=== PATIENT | male | born 1970 | race Caucasian/White ===

== ENCOUNTER 2019-10-31 15:04 | Emergency (ER) | payer MEDICAID ==
[~2019-10-31] VITALS: Ht 170.2 cm; Wt 77.0 kg
[~2019-10-31 15:04] MED LIST: NO HOME MEDS
[2019-10-31 15:09] VITALS: BP 121/83
[2019-10-31] MEDS ORDERED: LIDOcaine 1% W/epiNEPHrine 1:200,000 10ml vial IJ ONE (16:00)
[2019-10-31] MEDS ORDERED: HYDROcodone/acetaminophen 5mg/325mg tablet PO ONE (17:45)
== END 2019-10-31 18:13 | disposition home or self-care (01) ==
LOC: ER 15:04
DX: L02.512 Cutaneous abscess of left hand (principal); F15.90 Other stimulant use, unspecified, uncomplicated; Z88.0 Allergy status to penicillin
CPT/HCPCS: 10060; 99284

== ENCOUNTER 2019-11-03 11:24 | Emergency (ER) | payer MEDICAID ==
[~2019-11-03] VITALS: Ht 172.7 cm; Wt 77.3 kg
[2019-11-03 11:35] VITALS: BP 129/78
[2019-11-03] MEDS ORDERED: CefTRIAXone 250MG inj IM ONE (11:55)
[2019-11-03] MEDS ORDERED: CefTRIAXone 1000mg IM Kit (w/lidocaine diluent) IM ONE (12:05)
[2019-11-03] MEDS ORDERED: CEPH-572 PO (12:06)
[2019-11-03] MEDS ORDERED: SULF1TAB49 PO (12:06)
[2019-11-03] MEDS ORDERED: bacitracin 15gm ointment TP ONE (12:10)
[2019-11-03] MEDS ORDERED: TETanus/Pertussis (Acell)/Diphther VAC/PF (Tdap-Adult) 0.5ml syringe IMVAC ONE (12:10)
[2019-11-03] MEDS ORDERED: acetaminophen 325mg tablet PO ONE (12:10)
== END 2019-11-03 12:46 | disposition home or self-care (01) ==
LOC: ER 11:24
DX: L03.114 Cellulitis of left upper limb (principal); F15.90 Other stimulant use, unspecified, uncomplicated; Z86.14 Personal history of Methicillin resistant Staphylococcus aureus infection; Z59.0 Homelessness; Z88.0 Allergy status to penicillin; Z79.2 Long term (current) use of antibiotics
CPT/HCPCS: 87070; 90471; 90715; 96372; 99284; J0696; 87077; 87186

== ENCOUNTER 2019-11-08 11:11 | Emergency (ER) | payer MEDICAID ==
[~2019-11-08] VITALS: Ht 170.2 cm; Wt 81.8 kg
[~2019-11-08 11:11] MED LIST changes: +CEPH-572 PO; +SULF1TAB49 PO
[2019-11-08 11:48] VITALS: BP 110/80
--- NOTE | 2019-11-08 12:24 | NUR ---
Wound dressed with non-adherent and gauze.
== END 2019-11-08 12:43 | disposition home or self-care (01) ==
LOC: ER 11:11
DX: Z48.01 Encounter for change or removal of surgical wound dressing (principal); F15.90 Other stimulant use, unspecified, uncomplicated; Z86.19 Personal history of other infectious and parasitic diseases; Z59.0 Homelessness; Z88.0 Allergy status to penicillin; Z79.899 Other long term (current) drug therapy
CPT/HCPCS: 99282

== ENCOUNTER 2020-02-27 13:04 | Inpatient (IN) | payer MEDICAID ==
[~2020-02-27] VITALS: Ht 170.2 cm; Wt 79.0 kg
[~2020-02-27 13:04] MED LIST changes: -CEPH-572 PO; -SULF1TAB49 PO
[2020-02-27 13:51] LABS: BASOPHILS # (AUTO) 0.1 X10'3 (0-0.2); BASOPHILS % (AUTO) 0.7 % (0-1); EOSINOPHILS # (AUTO) 0.2 X10'3 (0-0.9); EOSINOPHILS % (AUTO) 1.4 % (0-6); HEMATOCRIT 43.7 % (42.0-52.0); HEMOGLOBIN 14.7 g/dl (14.0-17.9); LYMPHOCYTES # (AUTO) 2.2 X10'3 (1.1-4.8); LYMPHOCYTES % (AUTO) 17.8 % (21-51); MEAN CORPUSCULAR HEMOGLOBIN 31.7 PG (27.0-31.0); MEAN CORPUSCULAR HGB CONC 33.5 g/dL (33.0-36.5); MEAN CORPUSCULAR VOLUME 94.6 FL (78-98); MEAN PLATELET VOLUME 6.6 FL (7.4-10.4); MONOCYTES # (AUTO) 1.2 X10'3 (0-0.9); MONOCYTES % (AUTO) 9.2 % (2-12); NEUTROPHILS % (AUTO) 70.9 % (42-75); PLATELET COUNT 350 X10'3 (140-440); RED BLOOD COUNT 4.62 X10'6 (4.70-6.10); RED CELL DISTRIBUTION WIDTH 13.1 % (11.5-14.5); WHITE BLOOD COUNT 12.6 X10'3 (4.5-11.0)
[2020-02-27 14:07] LABS: ALANINE AMINOTRANSFERASE 123 U/L (12-78); ALBUMIN 2.8 G/DL (3.4-5.0); ALBUMIN/GLOBULIN RATIO 0.5 (1.1-1.5); ALKALINE PHOSPHATASE 73 IU/L (46-116); ANION GAP 9 (8-16); ASPARTATE AMINO TRANSFERASE 73 U/L (10-37); BILIRUBIN,TOTAL 0.3 MG/DL (0.1-1.0); BLOOD UREA NITROGEN 8 MG/DL (7-18); BUN/CREATININE RATIO 13.8 (5.4-32.0); CALCIUM 8.1 MG/DL (8.5-10.1); CHLORIDE 106 MMOL/L (99-107); CREATININE 0.58 MG/DL (0.60-1.10); GLUCOSE 112 MG/DL (70-104); POTASSIUM 3.8 MMOL/L (3.5-5.1); SODIUM 142 MMOL/L (135-145); TOTAL CARBON DIOXIDE 27.1 MMOL/L (24-32); eGFR > 90 ML/MIN
[2020-02-27] MEDS ORDERED: CefTRIAXone 2gm/D5W 50ml BAG 50 ML IV ONE (14:10)
[2020-02-27] MEDS ORDERED: vancomycin/NS 1 GM ADD-VANTAGE 250 ML IV ONE (14:10)
[2020-02-27] MEDS ORDERED: morphine 2 MG/ML inj. syringe IV PRN (15:00)
[2020-02-27] MEDS ORDERED: HYDROcodone/acetaminophen 5mg/325mg tablet PO PRN (15:00)
[2020-02-27] MEDS ORDERED: acetaminophen 325mg tablet PO PRN ×2 (15:00)
[2020-02-27] MEDS ORDERED: magnesium hydroxide 30ml (MOM) UD suspension PO PRN (15:00)
[2020-02-27] MEDS ORDERED: mag hydrox/Alum hydrox/simeth 30ml oral suspension PO PRN (15:00)
[2020-02-27] MEDS ORDERED: ondansetron/PF 4mg/2ml inj IV PRN (15:00)
--- NOTE | 2020-02-27 15:48 | NUR ---
Patient sleeping comfortably in bed.
--- NOTE | 2020-02-27 17:19 | NUR ---
Patient continues to sleep.
[2020-02-27 18:38] LABS: URINE AMPHETAMINE SCREEN POSITIVE (Neg); URINE BARBITUATE SCREEN NEGATIVE (Neg); URINE BENZODIAZEPINES SCREEN NEGATIVE (Neg); URINE CANNABINOID SCREEN NEGATIVE (Neg); URINE COCAINE SCREEN NEGATIVE (Neg); URINE METHADONE SCREEN NEGATIVE (Neg); URINE OPIATE SCREEN NEGATIVE (Neg); URINE PHENCYCLIDINE SCREEN NEGATIVE (Neg)
[2020-02-27] MEDS: morphine 2 MG/ML inj. syringe IV PRN (19:52)
[2020-02-27] MEDS ORDERED: vancomycin/NS 1 GM ADD-VANTAGE 250 ML IV SCH (20:00)
[2020-02-27 22:00] VITALS: BP_SYST 109; BP_SYST 149; BP_DIAS 62; BP_DIAS 72
[2020-02-27] MEDS: HYDROcodone/acetaminophen 10/325mg tab PO PRN (22:00)
[2020-02-28] MEDS: morphine 2 MG/ML inj. syringe IV PRN ×4 (00:45→22:02)
[2020-02-28] MEDS: HYDROcodone/acetaminophen 10/325mg tab PO PRN ×5 (02:06→19:47)
[2020-02-28] MEDS: VANCOmycin 1250MG/NS 250ml Bag 250 ML IV SCH ×2 (02:08→15:40)
[2020-02-28 06:00] VITALS: BP 135/93
[2020-02-28 06:25] LABS: BASOPHILS # (AUTO) 0.1 X10'3 (0-0.2); BASOPHILS % (AUTO) 0.6 % (0-1); EOSINOPHILS # (AUTO) 0.2 X10'3 (0-0.9); EOSINOPHILS % (AUTO) 1.4 % (0-6); HEMATOCRIT 43.1 % (42.0-52.0); HEMOGLOBIN 14.3 g/dl (14.0-17.9); LYMPHOCYTES # (AUTO) 2.1 X10'3 (1.1-4.8); LYMPHOCYTES % (AUTO) 15.4 % (21-51); MEAN CORPUSCULAR HEMOGLOBIN 31.3 PG (27.0-31.0); MEAN CORPUSCULAR HGB CONC 33.3 g/dL (33.0-36.5); MEAN CORPUSCULAR VOLUME 94.2 FL (78-98); MEAN PLATELET VOLUME 6.6 FL (7.4-10.4); MONOCYTES # (AUTO) 1.2 X10'3 (0-0.9); MONOCYTES % (AUTO) 8.5 % (2-12); NEUTROPHILS # (AUTO) 10.1 X10'3 (1.8-7.7); NEUTROPHILS % (AUTO) 74.1 % (42-75); PLATELET COUNT 325 X10'3 (140-440); RED BLOOD COUNT 4.58 X10'6 (4.70-6.10); WHITE BLOOD COUNT 13.6 X10'3 (4.5-11.0)
--- NOTE | 2020-02-28 06:31 | NUR ---
REPORT GIVEN TO ARMINDA GIL.
[2020-02-28 06:37] LABS: ALBUMIN 2.5 G/DL (3.4-5.0); ANION GAP 6 (8-16); BLOOD UREA NITROGEN 11 MG/DL (7-18); BUN/CREATININE RATIO 15.7 (5.4-32.0); CALCIUM 8.9 MG/DL (8.5-10.1); CHLORIDE 102 MMOL/L (99-107); GLUCOSE 90 MG/DL (70-104); POTASSIUM 4.3 MMOL/L (3.5-5.1); SODIUM 138 MMOL/L (135-145); TOTAL CARBON DIOXIDE 29.8 MMOL/L (24-32); eGFR > 90 ML/MIN
--- NOTE | 2020-02-28 06:44 | NUR ---
Patient in room ORTHO 4013. I have received report from ARMINDA Guadalupe and had the opportunity to ask questions and assume patient care.
[2020-02-28] MEDS: enoxaparin 40mg/0.4ml syringe SUBCUT SCH (08:43)
[2020-02-28 10:00] VITALS: BP 138/94
[2020-02-28] MEDS ORDERED: FLU VACC QS2020-21(6MOS UP)/PF 60 MCG/0.5 ML SYRINGE IMVAC ONE (10:00)
[2020-02-28] MEDS ORDERED: pneumococcal 23-VAL P-sac vacc 25 mcg/0.5ml vial IMVAC ONE (10:00)
[2020-02-28] MEDS ORDERED: dextrose 50%-water 50ml dispensing syringe IV PRN (10:40)
[2020-02-28] MEDS ORDERED: haloperidol 5mg tablet PO PRN (10:40)
[2020-02-28] MEDS ORDERED: LORazepam 2 mg/ml vial IV PRN (10:40)
[2020-02-28] MEDS ORDERED: haloperidol lactate 5mg/ml inj IM PRN (10:40)
[2020-02-28 18:00] VITALS: BP 142/97
--- NOTE | 2020-02-28 18:10 | NUR ---
Dr ng was in this afternoon to see pt. new order for NPO after midnight and inform consent. Pt is going for surgery tomorrow. Problems reprioritized. Patient report given, questions answered & plan of care reviewed with ARMINDA Sutherland.
[2020-02-28] MEDS: lactobacillus rhamnosus 10,000 MMU CELLS/CAPSULE PO SCH (19:47)
[2020-02-28 22:00] VITALS: BP 117/81
[2020-02-29] VITALS (16 sets, daily range): BP systolic 114–136; BP diastolic 62–96
[2020-02-29] MEDS: HYDROcodone/acetaminophen 10/325mg tab PO PRN ×3 (00:04→12:35)
[2020-02-29] MEDS: morphine 2 MG/ML inj. syringe IV PRN (02:31)
[2020-02-29] MEDS: VANCOmycin 1250MG/NS 250ml Bag 250 ML IV SCH (02:32)
--- NOTE | 2020-02-29 06:29 | NUR ---
Report given to Altagracia HILLIARD.
[2020-02-29 06:54] LABS: BASOPHILS # (AUTO) 0.1 X10'3 (0-0.2); BASOPHILS % (AUTO) 0.5 % (0-1); EOSINOPHILS # (AUTO) 0.2 X10'3 (0-0.9); EOSINOPHILS % (AUTO) 1.6 % (0-6); HEMATOCRIT 44.8 % (42.0-52.0); HEMOGLOBIN 15.2 g/dl (14.0-17.9); LYMPHOCYTES # (AUTO) 1.5 X10'3 (1.1-4.8); LYMPHOCYTES % (AUTO) 11.5 % (21-51); MEAN CORPUSCULAR HEMOGLOBIN 32.1 PG (27.0-31.0); MEAN CORPUSCULAR HGB CONC 33.9 g/dL (33.0-36.5); MEAN CORPUSCULAR VOLUME 94.7 FL (78-98); MEAN PLATELET VOLUME 6.6 FL (7.4-10.4); MONOCYTES # (AUTO) 1.1 X10'3 (0-0.9); NEUTROPHILS # (AUTO) 10.5 X10'3 (1.8-7.7); NEUTROPHILS % (AUTO) 78.4 % (42-75); PLATELET COUNT 342 X10'3 (140-440); RED BLOOD COUNT 4.73 X10'6 (4.70-6.10); RED CELL DISTRIBUTION WIDTH 12.9 % (11.5-14.5); WHITE BLOOD COUNT 13.4 X10'3 (4.5-11.0)
[2020-02-29 07:18] LABS: ALANINE AMINOTRANSFERASE 107 U/L (12-78); ALBUMIN 2.5 G/DL (3.4-5.0); ALBUMIN/GLOBULIN RATIO 0.5 (1.1-1.5); ALKALINE PHOSPHATASE 74 IU/L (46-116); ANION GAP 6 (8-16); ASPARTATE AMINO TRANSFERASE 68 U/L (10-37); BILIRUBIN,TOTAL 0.4 MG/DL (0.1-1.0); BLOOD UREA NITROGEN 10 MG/DL (7-18); BUN/CREATININE RATIO 15.4 (5.4-32.0); CALCIUM 8.5 MG/DL (8.5-10.1); CHLORIDE 104 MMOL/L (99-107); CREATININE 0.65 MG/DL (0.60-1.10); GLUCOSE 93 MG/DL (70-104); POTASSIUM 4.1 MMOL/L (3.5-5.1); SODIUM 139 MMOL/L (135-145); TOTAL PROTEIN 7.7 G/DL (6.4-8.2); eGFR > 90 ML/MIN
[2020-02-29] MEDS ORDERED: ondansetron/PF 4mg/2ml inj IV PRN (07:35)
[2020-02-29] MEDS ORDERED: fentaNYL/PF 50MCG/1 ML 2ML syringe IV PRN ×2 (07:35)
[2020-02-29] MEDS ORDERED: hydrALAZINE 20mg/ml inj. IV PRN (07:35)
[2020-02-29] MEDS ORDERED: morphine 2 MG/ML inj. syringe IV PRN (07:35)
[2020-02-29] MEDS ORDERED: ringers solution, lacted 1,000 ML IV SCH (07:35)
[2020-02-29] MEDS ORDERED: labetalol 20mg/4ml (5mg/ml) syringe IV PRN (07:35)
[2020-02-29] MEDS: multivitamins, therapeutics tablet PO SCH (08:00)
[2020-02-29] MEDS: thiamine 100mg tablet PO SCH (08:00)
[2020-02-29] MEDS: folic acid 1mg tablet PO SCH (08:00)
[2020-02-29] MEDS: lactobacillus rhamnosus 10,000 MMU CELLS/CAPSULE PO SCH ×2 (08:00→20:14)
[2020-02-29] MEDS ORDERED: clindamycin phosphate 150mg/ml inj. ONE (09:27)
[2020-02-29] MEDS ORDERED: bacitracin 15gm ointment TP ONE (09:28)
[2020-02-29] MEDS ORDERED: fentaNYL/PF 50MCG/1 ML 2ML syringe ONE (10:01)
[2020-02-29] MEDS ORDERED: midazolam 2 mg/2 ml injection ONE (10:01)
[2020-02-29] MEDS ORDERED: sevoflurane 250ml liquid IH ONE (10:01)
[2020-02-29] MEDS ORDERED: dexamethasone sod phosphate 10mg/ml inj ONE (10:01)
[2020-02-29] MEDS ORDERED: propofol inj 20 ML IV ONE (10:06)
[2020-02-29] MEDS ORDERED: LIDOcaine 2% (20mg/ml) 5ml vial ONE (10:06)
[2020-02-29] MEDS ORDERED: ondansetron/PF 4mg/2ml inj ONE (10:14)
--- NOTE | 2020-02-29 10:54 | NUR ---
Received from OR via ORTHO BED, accompanied by Anesthesiologist PAIGE and report given by Anesthesiolgist. Left hand with index fingers covered with dressing over drain and elida wrap over all with finger tips exposed good cap refill. VSS and mask to 10L pt not yet responsive. 20G right hand IVF LR at 100cc/hr.
--- NOTE | 2020-02-29 11:03 | NUR ---
Pt discharged to vehicle by wheelchair without incident. Pt verbalized understanding of all DC instructions including use of sling and IS. Has pain meds at home from MD office. picked up and had all DC instructions explained on phone. Belongings returned to patient and dressing remains CDI. Addendum: 02/29/20 at 1154 by Sarah Monreal RN INCORRECT PATIENT PLEASE DISREGARD
[2020-02-29] MEDS: morphine 4 MG/ML inj SYRINge IV PRN ×2 (11:06→11:26)
--- NOTE | 2020-02-29 11:44 | NUR ---
Report called to receiving nurse. Transferred via ortho bed to room 4013B with pain at tolerable level 3/10 per patient. Belongings remained in patients room. Special Issues communicated to receiving nurse Altagracia HILLIARD. BLL call light within reach and chart at bedside.
[2020-02-29] MEDS ORDERED: VANCOMYCIN LEVEL IV ONE (14:30)
[2020-02-29] MEDS: clindamycin 600mg/D5W 50ml 50 ML IV SCH ×2 (16:34→23:59)
--- NOTE | 2020-02-29 18:01 | NUR ---
Problems reprioritized. Patient report given, questions answered & plan of care reviewed with Ena HILLIARD.
[2020-03-01 02:00] VITALS: BP 122/76
[2020-03-01 06:00] VITALS: BP 130/77
--- NOTE | 2020-03-01 06:15 | NUR ---
Report given Sandra HILLIARD.
[2020-03-01 06:29] LABS: BASOPHILS # (AUTO) 0.1 X10'3 (0-0.2); BASOPHILS % (AUTO) 0.4 % (0-1); EOSINOPHILS % (AUTO) 0.2 % (0-6); HEMATOCRIT 46.3 % (42.0-52.0); HEMOGLOBIN 15.7 g/dl (14.0-17.9); LYMPHOCYTES # (AUTO) 2.4 X10'3 (1.1-4.8); LYMPHOCYTES % (AUTO) 11.6 % (21-51); MEAN CORPUSCULAR HEMOGLOBIN 32.3 PG (27.0-31.0); MEAN CORPUSCULAR VOLUME 94.8 FL (78-98); MEAN PLATELET VOLUME 6.7 FL (7.4-10.4); MONOCYTES # (AUTO) 1.4 X10'3 (0-0.9); MONOCYTES % (AUTO) 6.4 % (2-12); NEUTROPHILS # (AUTO) 17.1 X10'3 (1.8-7.7); NEUTROPHILS % (AUTO) 81.4 % (42-75); PLATELET COUNT 418 X10'3 (140-440); RED BLOOD COUNT 4.88 X10'6 (4.70-6.10)
[2020-03-01 06:44] LABS: ALANINE AMINOTRANSFERASE 94 U/L (12-78); ALBUMIN 2.5 G/DL (3.4-5.0); ALBUMIN/GLOBULIN RATIO 0.5 (1.1-1.5); ALKALINE PHOSPHATASE 71 IU/L (46-116); ANION GAP 5 (8-16); ASPARTATE AMINO TRANSFERASE 45 U/L (10-37); BILIRUBIN,TOTAL 0.3 MG/DL (0.1-1.0); BLOOD UREA NITROGEN 19 MG/DL (7-18); BUN/CREATININE RATIO 24.4 (5.4-32.0); CALCIUM 8.7 MG/DL (8.5-10.1); CHLORIDE 103 MMOL/L (99-107); CREATININE 0.78 MG/DL (0.60-1.10); GLUCOSE 108 MG/DL (70-104); POTASSIUM 4.2 MMOL/L (3.5-5.1); SODIUM 139 MMOL/L (135-145); TOTAL CARBON DIOXIDE 30.6 MMOL/L (24-32); eGFR > 90 ML/MIN
[2020-03-01] MEDS: folic acid 1mg tablet PO SCH (08:00)
[2020-03-01] MEDS: clindamycin 600mg/D5W 50ml 50 ML IV SCH ×3 (08:00→23:46)
[2020-03-01] MEDS: lactobacillus rhamnosus 10,000 MMU CELLS/CAPSULE PO SCH ×2 (08:00→20:45)
[2020-03-01] MEDS: multivitamins, therapeutics tablet PO SCH (08:01)
[2020-03-01] MEDS: thiamine 100mg tablet PO SCH (08:01)
[2020-03-01] MEDS: HYDROcodone/acetaminophen 10/325mg tab PO PRN ×4 (08:02→22:02)
[2020-03-01] MEDS: enoxaparin 40mg/0.4ml syringe SUBCUT SCH (08:14)
[2020-03-01 10:00] VITALS: BP 107/71
[2020-03-01] MEDS ORDERED: LORazepam 2 mg/ml vial IV PRN (10:40)
[2020-03-01] MEDS ORDERED: LORazepam 1 MG tablet PO PRN (10:40)
[2020-03-01 12:28] LABS: HBSAG SCREEN Negative (Negative); HEPATITIS C ANTIBODY >11.0 s/co ratio (0.0-0.9)
[2020-03-01 12:36] VITALS: BP 117/73
--- NOTE | 2020-03-01 13:05 | NUR ---
PAGER ID: [phone] MESSAGE: Sandra [phone] re Jean Betancourt- can he have a nicotine patch? He smokes 1 ppd. Also needs scheduled stool softener. Thank you
--- NOTE | 2020-03-01 13:46 | NUR ---
Initial: Pt admit DX L index finger abscess s/p I&D, transaminitis, meth/etoh abuse etoh .131 on admit, and hx homeless per EMR. PO almost all 100% avg regular diet meeting needs. Receiving thiamin, folic, MVI for etoh hx. LBM 02/25 w/ MoM PRN received today; would benefit from routine bowel care. Will continue to monitor. Rec: 1. continue regular diet 2. thiamin, folic, MVI for etoh hx 3. routine bowel care; consider opioid antagonist if MD agreeable since receiving morphine and norco 4. wt per rx Addendum: 03/01/20 at [address] Amended: Links added.
[2020-03-01] MEDS: nicotine 21mg patch - 24 hr TD SCH (16:54)
[2020-03-01 18:00] VITALS: BP 120/74
--- NOTE | 2020-03-01 18:35 | NUR ---
Patient in room DUC 357. I have received report from Sandra HILLIARD and had the opportunity to ask questions and assume patient care.
[2020-03-01] MEDS: docusate sod 100mg capsule PO SCH (20:45)
[2020-03-02 00:06] VITALS: BP 126/70
[2020-03-02] MEDS: HYDROcodone/acetaminophen 10/325mg tab PO PRN ×3 (01:51→14:41)
[2020-03-02 05:19] LABS: BASOPHILS # (AUTO) 0.1 X10'3 (0-0.2); BASOPHILS % (AUTO) 0.5 % (0-1); EOSINOPHILS # (AUTO) 0.2 X10'3 (0-0.9); EOSINOPHILS % (AUTO) 1.7 % (0-6); HEMATOCRIT 44.6 % (42.0-52.0); HEMOGLOBIN 15.4 g/dl (14.0-17.9); LYMPHOCYTES # (AUTO) 2.7 X10'3 (1.1-4.8); LYMPHOCYTES % (AUTO) 21.5 % (21-51); MEAN CORPUSCULAR HEMOGLOBIN 32.6 PG (27.0-31.0); MEAN CORPUSCULAR HGB CONC 34.4 g/dL (33.0-36.5); MEAN CORPUSCULAR VOLUME 94.8 FL (78-98); MEAN PLATELET VOLUME 6.8 FL (7.4-10.4); MONOCYTES # (AUTO) 0.9 X10'3 (0-0.9); MONOCYTES % (AUTO) 7.3 % (2-12); NEUTROPHILS # (AUTO) 8.6 X10'3 (1.8-7.7); PLATELET COUNT 369 X10'3 (140-440); RED BLOOD COUNT 4.71 X10'6 (4.70-6.10); RED CELL DISTRIBUTION WIDTH 13.1 % (11.5-14.5); WHITE BLOOD COUNT 12.5 X10'3 (4.5-11.0)
[2020-03-02 05:28] LABS: ALANINE AMINOTRANSFERASE 88 U/L (12-78); ALBUMIN 2.4 G/DL (3.4-5.0); ALBUMIN/GLOBULIN RATIO 0.5 (1.1-1.5); ALKALINE PHOSPHATASE 63 IU/L (46-116); ANION GAP 4 (8-16); ASPARTATE AMINO TRANSFERASE 46 U/L (10-37); BILIRUBIN,TOTAL 0.2 MG/DL (0.1-1.0); BLOOD UREA NITROGEN 19 MG/DL (7-18); BUN/CREATININE RATIO 24.1 (5.4-32.0); CALCIUM 8.7 MG/DL (8.5-10.1); CHLORIDE 105 MMOL/L (99-107); CREATININE 0.79 MG/DL (0.60-1.10); GLUCOSE 91 MG/DL (70-104); POTASSIUM 4.3 MMOL/L (3.5-5.1); SODIUM 140 MMOL/L (135-145); TOTAL CARBON DIOXIDE 30.7 MMOL/L (24-32); TOTAL PROTEIN 7.6 G/DL (6.4-8.2); eGFR > 90 ML/MIN
--- NOTE | 2020-03-02 06:25 | NUR ---
Problems reprioritized. Patient report given, questions answered & plan of care reviewed with Alber RN.
--- NOTE | 2020-03-02 06:30 | NUR ---
Patient in room DUC 357. I have received report from Doris HILLIARD and had the opportunity to ask questions and assume patient care.
[2020-03-02 07:17] VITALS: BP 95/60
[2020-03-02] MEDS: thiamine 100mg tablet PO SCH (08:11)
[2020-03-02] MEDS: docusate sod 100mg capsule PO SCH (08:11)
[2020-03-02] MEDS: multivitamins, therapeutics tablet PO SCH (08:11)
[2020-03-02] MEDS: lactobacillus rhamnosus 10,000 MMU CELLS/CAPSULE PO SCH (08:11)
[2020-03-02] MEDS: clindamycin 600mg/D5W 50ml 50 ML IV SCH ×2 (08:11→16:00)
[2020-03-02] MEDS: enoxaparin 40mg/0.4ml syringe SUBCUT SCH (08:13)
[2020-03-02] MEDS: nicotine 21mg patch - 24 hr TD SCH (08:13)
[2020-03-02] MEDS: folic acid 1mg tablet PO SCH (08:14)
[2020-03-02] MEDS: morphine 2 MG/ML inj. syringe IV PRN (10:10)
[2020-03-02 12:12] VITALS: BP 96/58
[2020-03-02] MEDS ORDERED: CLIN-5 PO (13:50)
[2020-03-02] MEDS ORDERED: ACET-1008 PO (15:09)
--- NOTE | 2020-03-02 17:00 | NUR ---
PATIENT LEFT WITH ALL OF HIS BELONGING, IV TAKEN OUT AT TIME OF DISCHARGE. PATIENT WAS EDUCATED ON WOUND CARE AND FOLLOW UP APPOINTMENT. PATIENT HAS EXTRA DRESSING CARE MATERIALS AND AND WAS EDUCATED ON COMING BACK TO ER IF ANY PROBLEMS OCCUR. PATIENT WAS VERBALLY EDUCATED ON DISCHARGE MEDICATION AND HOW TO TAKE ANTIBIOTIC. UPON DISCHARGE PATIENT WAS TRANSPORTED IN [place] TO DEST[facility]ATION.
[2020-03-03] MEDS ORDERED: LORazepam 1 MG tablet PO PRN (10:40)
[2020-03-03] MEDS ORDERED: LORazepam 2 mg/ml vial IV PRN (10:40)
== END 2020-03-02 16:50 | disposition home or self-care (01) | DRG 383 ==
LOC: ER 13:04 → ED HOLD 14:59 → ORTHO 4S 21:12 → SUR 3N 03-01 12:07
PROVIDERS: ADMIT Internal Medicine; ATTEND Internal Medicine
PROC: 0H9GXZZ Drainage of Left Hand Skin, External Approach (ICD-10-PCS; principal; 2020-02-29 10:01)
DX: L03.012 Cellulitis of left finger (principal); M86.9 Osteomyelitis, unspecified; Z20.828 Contact with and (suspected) exposure to other viral communicable diseases; G92 Toxic encephalopathy; F15.90 Other stimulant use, unspecified, uncomplicated
CPT/HCPCS: 36415; 73140; 80048; 80053; 80202; 80305; 80320; 82948; 85025; 85651; 86803; 87070; 87075; 87077; 87081; 87186; 87340; 87635; 90732; 93005; 96374; 96375; 99285; A4618; A6222; A6449; A7000; G0378; J0696; J1100; J1650; J2001; J2060; J2250; J2270; J2405; J2704; J3010; J3370; J3490; J7120; Q2039

== ENCOUNTER 2023-08-13 09:12 | Emergency (ER) | payer MEDICAID ==
[~2023-08-13] VITALS: Ht 177.8 cm; Wt 69.9 kg
[2023-08-13 09:13] VITALS: TEMP 98.7
[2023-08-13] MEDS: diazepam inj 5 MG/ML inj. IV ONE (09:42)
[2023-08-13] MEDS: normal saline 1000ML IV soln IVB ONE ×2 (09:42→11:39)
[2023-08-13 09:51] LABS: BASOPHILS # (AUTO) 0.1 X10'3 (0-0.2); BASOPHILS % (AUTO) 0.5 % (0-1); EOSINOPHILS # (AUTO) 0.3 X10'3 (0-0.9); EOSINOPHILS % (AUTO) 2.4 % (0-6); HEMATOCRIT 42.8 % (42.0-52.0); HEMOGLOBIN 14.2 g/dl (14.0-17.9); LYMPHOCYTES # (AUTO) 2.5 X10'3 (1.1-4.8); LYMPHOCYTES % (AUTO) 22.5 % (21-51); MEAN CORPUSCULAR HEMOGLOBIN 31.5 PG (27.0-31.0); MEAN CORPUSCULAR HGB CONC 33.3 g/dL (33.0-36.5); MEAN CORPUSCULAR VOLUME 94.7 FL (78-98); MONOCYTES # (AUTO) 1.1 X10'3 (0-0.9); MONOCYTES % (AUTO) 10.1 % (2-12); NEUTROPHILS # (AUTO) 7.2 X10'3 (1.8-7.7); NEUTROPHILS % (AUTO) 64.5 % (42-75); PLATELET COUNT 168 X10'3 (140-440); RED BLOOD COUNT 4.52 X10'6 (4.70-6.10); RED CELL DISTRIBUTION WIDTH 14.5 % (11.5-14.5); WHITE BLOOD COUNT 11.2 X10'3 (4.5-11.0)
[2023-08-13 10:00] VITALS: O2SAT 96
[2023-08-13 10:14] LABS: ALBUMIN 3.7 G/DL (3.4-5.0); ANION GAP 9 (8-16); BLOOD UREA NITROGEN 24 MG/DL (7-18); BUN/CREATININE RATIO 26.1 (10.0-20.0); CALCIUM 8.8 MG/DL (8.5-10.1); CHLORIDE 104 MMOL/L (99-107); CREATININE 0.92 MG/DL (0.60-1.10); ETHANOL < 10 MG/DL (<10); GLUCOSE 110 MG/DL (70-104); POTASSIUM 3.7 MMOL/L (3.5-5.1); PRO BRAIN NATRIURETIC PEPTIDE 240 PG/ML (0-125); SODIUM 139 MMOL/L (135-145); TOTAL CARBON DIOXIDE 25.6 MMOL/L (24-32); eCRCL 94 ML/MIN; eGFR 87 ML/MIN
[2023-08-13 14:33] LABS: BILIRUBIN,URINE NEGATIVE (Neg); CLARITY,URINE SLIGHTLY CLOUDY (Clear); COLOR,URINE YELLOW (Yellow); GLUCOSE, URINE NEGATIVE (Neg); KETONES,URINE TRACE mg/dl (Neg); LEUKOCYTE ESTERASE ,URINE NEGATIVE (Neg); NITRITES, URINE NEGATIVE (Neg); OCCULT BLOOD,URINE NEGATIVE (Neg); PH,URINE 5.5 (4.8-8.0); PROTEIN,URINE TRACE mg/dl (Neg)
[2023-08-13 14:38] LABS: UA COLLECTION TYPE URINAL
[2023-08-13 14:39] LABS: FINE GRANULAR CAST 0-3 /LPF (NEGATIVE); MUCUS STRANDS MANY /LPF (Neg); URINE AMPHETAMINE SCREEN POSITIVE (Neg); URINE BARBITUATE SCREEN NEGATIVE (Neg); URINE BENZODIAZEPINES SCREEN NEGATIVE (Neg); URINE CANNABINOID SCREEN NEGATIVE (Neg); URINE COCAINE SCREEN NEGATIVE (Neg); URINE METHADONE SCREEN NEGATIVE (Neg); URINE OPIATE SCREEN NEGATIVE (Neg); URINE PHENCYCLIDINE SCREEN NEGATIVE (Neg)
[2023-08-13 14:40] LABS: AMORPHOUS URATES 1+; BACTERIA,URINE FEW /HPF (Neg); COARSE GRANULAR CAST 0-3 /LPF (NEGATIVE); SQUAMOUS EPITHELIAL CELL,UR FEW /LPF (FEW); WBC,URINE 0-4 /HPF (0-4)
[2023-08-13 14:44] VITALS: BP 123/77; PULSE 83; RESP 19
== END 2023-08-13 14:51 | disposition home or self-care (01) ==
LOC: ER 09:13
DX: R07.89 Other chest pain (principal); F15.90 Other stimulant use, unspecified, uncomplicated; Z88.0 Allergy status to penicillin
CPT/HCPCS: 36415; 71045; 80048; 80305; 80320; 81001; 83880; 84484; 85025; 93005; 96360; 96361; 99285; J7030

== ENCOUNTER 2024-04-16 11:19 | Emergency (ER) | payer MEDICAID ==
[~2024-04-16] VITALS: Ht 170.2 cm; Wt 75.0 kg
[2024-04-16 11:20] VITALS: TEMP 98.2
[2024-04-16 11:51] VITALS: BP 132/84; PULSE 78; RESP 16; O2SAT 100
== END 2024-04-16 11:53 ==
LOC: ER 11:20
DX: R07.89 Other chest pain (principal); F15.90 Other stimulant use, unspecified, uncomplicated; Z88.0 Allergy status to penicillin; Z59.00 Homelessness unspecified
CPT/HCPCS: 93005; 99283